=== PATIENT | female | born 1990 | race Caucasian/White ===

== ENCOUNTER 2021-05-09 20:33 | Emergency (ER) | payer MEDICAID ==
[~2021-05-09] VITALS: Ht 170.2 cm; Wt 70.8 kg
[2021-05-09 20:48] VITALS: BP 125/83
--- NOTE | 2021-05-09 20:56 | NUR ---
PT TAKEN TO ER BED 07
--- NOTE | 2021-05-09 21:57 | NUR ---
Patient discharged with v/s stable. Written and verbal after care instructions given and explained. Patient verbalized understanding. Ambulatory with steady gait. All questions addressed prior to discharge. Advised to follow up with PMD.
== END 2021-05-09 21:57 | disposition home or self-care (01) ==
LOC: MED 20:33
DX: S63.613A Unspecified sprain of left middle finger, initial encounter (principal); Z88.0 Allergy status to penicillin; Z88.5 Allergy status to narcotic agent; Z90.710 Acquired absence of both cervix and uterus; Z98.890 Other specified postprocedural states; W22.8XXA Striking against or struck by other objects, initial encounter; Y93.89 Activity, other specified; Y92.89 Other specified places as the place of occurrence of the external cause; Y99.8 Other external cause status
CPT/HCPCS: 29130; 73140; 90471; 90715; 99283; Q0092